=== PATIENT | male | born 1995 | race Two or more races ===

== ENCOUNTER 2020-11-12 08:59 | Outpatient (CLI) | payer MEDICAID ==
[2020-11-12 12:59] LABS: CHOL/HDL RATIO 6.1 (<5.0); CHOLESTEROL 245 mg/dL; HDL CHOLESTEROL 40 mg/dL; LDL CHOLESTEROL,CALCULATED 169 mg/dL; LDL/HDL RATIO 4.2 (<3.6); TRIGLYCERIDES 178 mg/dL; VLDL CHOLESTEROL 36 mg/dL
== END 2020-11-12 09:00 | disposition home or self-care (01) ==
LOC: LAB.N 08:59
PROVIDERS: ATTEND Physician Assistant
DX: Z00.00 Encounter for general adult medical examination without abnormal findings (principal)
CPT/HCPCS: 36415; 80061; 83721